=== PATIENT | female | born 1955 | race Caucasian/White ===

== ENCOUNTER 2023-04-26 11:56 | Emergency (ER) | payer BC, MEDICAID ==
[~2023-04-26] VITALS: Ht 165.1 cm; Wt 76.2 kg
[2023-04-26 12:12] VITALS: BP 160/69
[2023-04-26] MEDS ORDERED: VISCOUS LIDOCAINE 2% 15 ML UDC PO STA (12:14)
[2023-04-26] MEDS ORDERED: MAGNESIUM/ALUMINUM HYDROXIDE/SIMETHICONE 30ML UDC PO NR (12:14)
[2023-04-26] MEDS ORDERED: MAGNESIUM/ALUMINUM HYDROXIDE/SIMETHICONE 30ML UDC PO STA (12:14)
[2023-04-26] MEDS: VISCOUS LIDOCAINE 2% 15 ML UDC PO NR ×2 (12:14→18:33)
[2023-04-26 12:32] LABS: BASOPHILS % 0.7 % (0.0-2.0); EOSINOPHILS % 0.6 % (0.0-5.0); HEMATOCRIT. 43.6 % (36.0-48.0); HEMOGLOBIN. 15.2 g/dL (12.0-16.0); LYMPHOCYTES % 14.7 % (20.0-50.0); MEAN CORPUSCULAR HEMOGLOBIN 31.9 pg (28.0-32.0); MEAN CORPUSCULAR VOLUME 91.8 fL (81.0-99.0); MEAN PLATELET VOLUME 8.5 fl (7.4-10.4); MONOCYTES % 7.9 % (2.0-8.0); NEUTROPHILS % 76.1 % (40.0-76.0); PLATELET 290 x1000/uL (130-400); RED BLOOD CELL COUNT 4.75 mill/uL (4.2-5.4); RED CELL DISTRIBUTION WIDTH 15.8 % (11.6-14.6)
[2023-04-26 12:38] LABS: CHLORIDE 109 mEq/L (98-107)
[2023-04-26 13:01] LABS: CLARITY URINE CLEAR (CLEAR); COLOR URINE YELLOW (YELLOW); KETONES URINE NEGATIVE (NEGATIVE); LEUKOCYTE ESTERASE URINE NEGATIVE (NEGATIVE); NITRITE URINE NEGATIVE (NEGATIVE); OCCULT BLOOD URINE TRACE (NEGATIVE); PH URINE 5.5 (4.5-8.0); PROTEIN URINE NEGATIVE (NEGATIVE); SPECIFIC GRAVITY URINE 1.009 (1.005-1.030); UROBILINOGEN URINE 0.2 E.U./dL (0.2-1.0)
[2023-04-26] MEDS ORDERED: FAMOTIDINE 20MG TABLET PO ONE (17:15)
[2023-04-26] MEDS ORDERED: FAMOTIDINE 20MG TABLET PO NR (17:15)
[2023-04-26] MEDS ORDERED: FAMO-135 MT (17:47)
[2023-04-26] MEDS ORDERED: MAG355OR21 MT (17:47)
[2023-04-26] MEDS ORDERED: LOPE2CAP MT (17:47)
== END 2023-04-26 19:22 | disposition home or self-care (01) ==
LOC: ER 13:42
DX: R10.13 Epigastric pain (principal); R19.7 Diarrhea, unspecified
CPT/HCPCS: 36415; 80053; 81003; 84484; 85025; 93005; 99284